=== PATIENT | female | born 1935 | race African-American/Black ===

== ENCOUNTER 2016-08-21 18:24 | Emergency (ER) | payer OTHER ==
[~2016-08-21] VITALS: Ht 152.4 cm; Wt 64.4 kg
[2016-08-21 19:25] LABS: BASO % 1 % (0-3); EOS % 0 % (0-3); HEMATOCRIT 32.2 % (36.0-47.0); HEMOGLOBIN 10.7 g/dL (12.0-15.5); LYMPH # 1.7 x10^3/uL (1.0-4.8); LYMPH % 22 % (24-48); MEAN CORPUSCULAR HEMOGLOBIN 27 pg (25-35); MEAN CORPUSCULAR HGB CONC 33 g/dL (31-37); MEAN CORPUSCULAR VOLUME 81 fL (79-100); MONO % 11 % (0-9); NEUT % 66 % (31-73); PLATELET COUNT 227 x10^3/uL (140-400); RED BLOOD COUNT 3.96 x10^6/uL (3.50-5.40); RED CELL DISTRIBUTION WIDTH 14.7 % (11.5-14.5); WHITE BLOOD COUNT 7.5 x10^3/uL (4.0-11.0)
--- NOTE | 2016-08-21 19:36 | RAD ---
CT head without contrast Indication: Altered mental status. Axial imaging through the brain was performed without contrast. The ventricles and sulci are within normal limits. No sulcal effacement, midline shift or hemorrhage is detected. The cisterns are patent. The visualized paranasal sinuses are clear. Impression: No acute intracranial process is detected. Electronically signed by: Anup Machuca MD (Aug 21, 2016 19:34:25)
[2016-08-21 19:50] LABS: OBC FLU VALID
[2016-08-21 19:58] LABS: ALBUMIN 2.8 g/dL (3.4-5.0); ALBUMIN/GLOBULIN RATIO 0.8 (1.0-1.7); CALCIUM 8.9 mg/dL (8.5-10.1); CREATININE 1.5 mg/dL (0.6-1.0); GFR 40.5; POTASSIUM 3.5 mmol/L (3.5-5.1); TOTAL BILIRUBIN 0.2 mg/dL (0.2-1.0); TOTAL PROTEIN 6.5 g/dL (6.4-8.2)
[2016-08-21 20:13] LABS: BILIRUBIN,URINE NEGATIVE (NEG); GLUCOSE,URINE NEGATIVE (NEG); NITRITE,URINE NEGATIVE (NEG); PROTEIN,URINE NEGATIVE (NEG-TRACE); UROBILINOGEN,URINE 0.2 mg/dL (0.2 mg/dL)
[2016-08-21 20:20] LABS: BACTERIA,URINE 0 /HPF (0-FEW); RBC,URINE OCC /HPF (0-2); SQUAMOUS EPITHELIAL CELL,UR FEW /LPF; WBC,URINE RARE /HPF (0-4)
[2016-08-21] MEDS ORDERED: HYDR25TA9 PO (20:30)
[2016-08-21] MEDS ORDERED: GLIM2TAB2 PO (20:32)
[2016-08-21 21:00] VITALS: BP 179/75
--- NOTE | 2016-08-21 22:09 | ED.ADGEN ---
Past Medical History Past Medical History: Diabetes-Type II, Hypertension Past Surgical History: Other Additional Past Surgical Histo: partial hysterectomy Alcohol Use: None Drug Use: None Adult General Chief Complaint Chief Complaint: DIZZY/LIGHT HEADED HPI HPI Patient is a 81 year old woman, history of type 2 diabetes mellitus for which she uses oral euglycemic, hypertension, who presents to the emergency department with her with multiple complaints. Patient noted to be altered per her , "foggy", patient is generally a 4, but is only in 2 in the ED, complains of decreased appetite, and flulike symptoms are the past several days. Denies any focal weakness numbness or tingling, generalized weakness is reported. No chest pain or shortness of breath, positive for mild rhinorrhea, and cough. 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 Did receive her laxation this year. Patient states and confirms that she has been compliant with all medications. Complaint of episode of "sweating", that occurred last night, but no chills, no reported fevers. No recent travel or surgery, history of DVT or PE , no chest pain or shortness of breath. Review of Systems Review of Systems Constitutional: Denies fever or chills. [] Generalized malaise. Eyes: Denies change in visual acuity. [] HENT: Denies nasal congestion or sore throat. [] Respiratory: Cough, no shortness of breath, nonproductive. Cardiovascular: Denies chest pain or edema. [] GI: Denies abdominal pain, nausea, vomiting, bloody stools or diarrhea. [] : Denies dysuria. [] Musculoskeletal: Denies back pain or joint pain. [] Integument: Denies rash. [] Neurologic: Denies headache, focal weakness or sensory changes. [] Endocrine: Denies polyuria or polydipsia. [] Lymphatic: Denies swollen glands. [] Psychiatric: Denies depression or anxiety. [] Allergies Allergies Allergies Coded Allergies Type Severity Reaction Last Updated Verified Penicillins Allergy Intermediate 01/03/15 No Physical Exam Physical Exam Constitutional: Well developed, well nourished, no acute distress, non-toxic appearance. [] HENT: Normocephalic, atraumatic, bilateral external ears normal, oropharynx moist, no oral exudates, nose normal. [] Eyes: PERRLA, EOMI, conjunctiva normal, no discharge. [] Neck: Normal range of motion, no tenderness, supple, no stridor. [] Cardiovascular:Heart rate regular rhythm, no murmur, S1, S2, no rubs or gallops. [] Lungs & Thorax: Bilateral breath sounds clear to auscultation, no wheezing, rhonchi, rales. No chest tenderness or crepitus. [] Abdomen: Bowel sounds normal, soft, no tenderness, no rebound, rigidity, no guarding, no masses, no pulsatile masses. [] Skin: Warm, dry, no erythema, no rash. [] Back: No tenderness, no CVA tenderness. [] Extremities: No tenderness, no cyanosis, no clubbing, ROM intact, no edema. [] Neurologic: Alert and oriented X 2-3, normal motor function, normal sensory function, no focal deficits noted. Slightly slow to respond. [] Psychologic: Affect normal, judgement normal, mood normal. [] Current Patient Data Vital Signs Vital Signs Date Time Temp Pulse Resp B/P Pulse Ox O2 Delivery O2 Flow Rate FiO2 08/21/16 21:00 62 35 179/75 98 Room Air 08/21/16 18:55 97.9 97.9 Lab Values Laboratory Tests Test 08/21/16 19:14 08/21/16 19:18 08/21/16 19:30 White Blood Count 7.5x10^3/uL (4.0-11.0) Red Blood Count 3.96x10^6/uL (3.50-5.40) Hemoglobin 10.7g/dL (12.0-15.5) L Hematocrit 32.2% (36.0-47.0) L Mean Corpuscular Volume 81fL (79-100) Mean Corpuscular Hemoglobin 27pg (25-35) Mean Corpuscular Hemoglobin Concent 33g/dL (31-37) Red Cell Distribution Width 14.7% (11.5-14.5) H Platelet Count 227x10^3/uL (140-400) Neutrophils (%) (Auto) 66% (31-73) Lymphocytes (%) (Auto) 22% (24-48) L Monocytes (%) (Auto) 11% (0-9) H Eosinophils (%) (Auto) 0% (0-3) Basophils (%) (Auto) 1% (0-3) Neutrophils # (Auto) 5.0x10^3uL (1.8-7.7) Lymphocytes # (Auto) 1.7x10^3/uL (1.0-4.8) Monocytes # (Auto) 0.9x10^3/uL (0.0-1.1) Eosinophils # (Auto) 0.0x10^3/uL (0.0-0.7) Basophils # (Auto) 0.0x10^3/uL (0.0-0.2) Sodium Level 139mmol/L (136-145) Potassium Level 3.5mmol/L (3.5-5.1) Chloride Level 104mmol/L (98-107) Carbon Dioxide Level 23mmol/L (21-32) Anion Gap 12 (6-14) Blood Urea Nitrogen 35mg/dL (7-20) H Creatinine 1.5mg/dL (0.6-1.0) H Estimated GFR (Cockcroft-Gault) 40.5 BUN/Creatinine Ratio 23 (6-20) H Glucose Level 33mg/dL (70-99) *L Lactic Acid Level 1.2mmol/L (0.4-2.0) Calcium Level 8.9mg/dL (8.5-10.1) Total Bilirubin 0.2mg/dL (0.2-1.0) Aspartate Amino Transferase (AST) 32U/L (15-37) Alanine Aminotransferase (ALT) 22U/L (14-59) Alkaline Phosphatase 67U/L (46-116) Troponin I Quantitative < 0.017ng/mL (0.000-0.055) HP-Glu-B-Type Natriuretic Peptide 559pg/mL (0-449) H Total Protein 6.5g/dL (6.4-8.2) Albumin 2.8g/dL (3.4-5.0) L Albumin/Globulin Ratio 0.8 (1.0-1.7) L Influenza Type A Antigen Negative (NEGATIVE) Influenza Type B Antigen Negative (NEGATIVE) Urine Collection Type Unknown Urine Color Yellow Urine Clarity Clear Urine pH 6.0 Urine Specific [place] <=1.005 Urine Protein Negativemg/dL (NEG-TRACE) Urine Glucose (UA) Negativemg/dL (NEG) Urine Ketones (Stick) Negativemg/dL (NEG) Urine Blood Trace (NEG) Urine Nitrite Negative (NEG) Urine Bilirubin Negative (NEG) Urine Urobilinogen Dipstick 0.2mg/dL (0.2 mg/dL) Urine Leukocyte Esterase Negative (NEG) Urine RBC Occ/HPF (0-2) Urine WBC Rare/HPF (0-4) Urine Squamous Epithelial Cells Few/LPF Urine Bacteria 0/HPF (0-FEW) Laboratory Tests 08/21/16 19:14 Laboratory Tests 08/21/16 19:14 EKG EKG EC: Sinus rhythm, heart rate 60 bpm, upright axis, QTC of 438, OR 150, QRS of 84, contour normality is noted in the anterior lateral leads, mild baseline artifact noted, no ST elevations or depressions. Abnormal ECG, does not meet STEMI criteria. As interpreted by me. [] Radiology/Procedures Radiology/Procedures Chest x-ray: One view: Normal cardiopulmonary silhouette, no infiltrates, no pneumothorax, no effusions, no soft tissue or bone abdomen abnormalities identified. As interpreted by me. [] Course & Med Decision Making Course & Med Decision Making Pertinent Labs and Imaging studies reviewed. (See chart for details) Patient noted to have a blood glucose of 33, recheck was 27, patient remains awake and alert, given orange juice and then a meal tray in the ED, which she took without any issue. Imaging of the head was unremarkable, laboratory studies do not reveal any acutely concerning findings aside from the low blood sugar as stated. Revisited issue of medications with patient, patient's did go home and was able to obtain her medications, she does take glyburide which she reports she's been taking as directed. Patient's repeat glucose is 75 , she is now alert and oriented 4. As the etiology for her hypoglycemia and several days of symptoms are unclear, patient initially agreeable for patient to the hospital, however as she is now feeling better, and is a4, she is requesting to leave. Patient has already been admitted and has been accepted to the service of Dr. Chandra, who was evaluated and patient in the emergency department the patient stated that she would like to leave. I did speak with the patient, and voiced concerns regarding the fact that we have an unclear etiology for her hypoglycemia, that this is an isolated incident, and she may been experiencing her glycemia home as well, and there may be more going on here and then simply "not eating enough for the past couple days", which the patient states is the cause of her hypoglycemia. As the patient remains oriented 4, and is eating in the ED, and has at bedside will be with her home, after lengthy discussion regarding risks and potential bad outcomes, patient did sign out AGAINST MEDICAL ADVICE from the emergency department. Patient discharged home with family, instructed to return to the ED at any time for additional evaluation. Dragon Disclaimer Dragon Disclaimer This electronic medical record was generated, in whole or in part, using a voice recognition dictation system. Departure Impression: Primary Impression: Hypoglycemia Additional Impression: Altered mental status Disposition: 07 AGAINST MEDICAL ADVICE Condition: IMPROVED Problem Qualifiers Additional Impression: Altered mental status Altered mental status type: unspecified Qualified Code: R41.82 - Altered mental status, unspecified JAZLYN COOK DO Aug 21, 2016 22:09
--- NOTE | 2016-08-22 06:25 | EKG ---
[facility] [address] [place] [address] Test Date: 2016-08-21 Test Time: 18:59:19 Pat Name: SAMANTHA BROOKS Department: Room: Gender: F [employer]er: ARSH : 1935 Requested By: JAZLYN COOK Order Number: [id number] Reading MD: Measurements Intervals [place] Rate: 60 P: 48 CT: 150 QRS: 23 QRSD: 84 T: 27 QT: 438 QTc: 438 Interpretive Statements SINUS RHYTHM QRS(T) CONTOUR ABNORMALITY CONSIDER ANTEROLATERAL MYOCARDIAL DAMAGE POSSIBLY ABNORMAL ECG RI6.01 No previous ECG available for comparison
--- NOTE | 2016-08-22 08:45 | RAD ---
Portable chest, 08/21/2016: History: Cough, dizziness The heart is at the upper limits of normal in size. There is tortuosity of the thoracic aorta. The pulmonary vascularity is normal. No pulmonary infiltrates are seen. No pleural fluid is evident. IMPRESSION: No acute cardiopulmonary abnormality is detected.
== END 2016-08-21 21:15 | disposition left against medical advice (07) ==
LOC: ER 18:24
DX: E11.649 Type 2 diabetes mellitus with hypoglycemia without coma (principal); R41.82 Altered mental status, unspecified; I10 Essential (primary) hypertension; Z88.0 Allergy status to penicillin
CPT/HCPCS: 36415; 70450; 71010; 80053; 81001; 83605; 83880; 84484; 85027; 87804; 93005; 99285-25